=== PATIENT | female | born 1965 | race Caucasian/White ===

== ENCOUNTER 2016-05-18 15:11 | Emergency (ER) | payer BC, MEDICAID, OTHER ==
[~2016-05-18] VITALS: Ht 162.6 cm; Wt 101.0 kg
[~2016-05-18 15:11] MED LIST: IBUP200C11; NO OTHER MEDS; VIC
[2016-05-18 15:13] VITALS: Ht 162.6 cm; Wt 101.0 kg
[2016-05-18] MEDS ORDERED: morphine 4 MG/ML VIAL IV STA (15:50)
[2016-05-18] MEDS ORDERED: ONDANSETRON 4 MG INJ IV STA (15:50)
--- NOTE | 2016-05-18 16:23 | RADRPT ---
PROCEDURE: US Abdomen (right upper quadrant). CLINICAL INDICATION: Right upper quadrant pain TECHNIQUE: Multiple real-time longitudinal and transverse images of the right upper quadrant of th e abdomen were acquired utilizing a curved array transducer. Images were reviewed on a high-resoluti on PACS workstation. COMPARISON: None FINDINGS: The liver is borderline enlarged at 18.0 cm with a coarsened echotexture suggesting steatosis withou t focal mass or intrahepatic biliary dilatation. There is normal hepatopedal flow within the main p ortal vein. The gallbladder is gallbladder is well displayed. There are no filling defects and no wall thickening. The common bile duct measures 3.9 mm in maximal dimension. The visualized portion s of the pancreas are unremarkable with obscuration of the tail of the pancreas. No free fluid is i dentified. The right kidney measures 12.5 cm in length. There is normal echogenicity within the right kidney. There is no perinephric fluid collection. No hydronephrosis, mass, or calculus is seen. IMPRESSION: 1. Mild hepatomegaly with a coarsened echotexture suggesting diffuse steatosis. 2. The gallbladder, pancreas and biliary tree appear unremarkable. RPTAT: [facility] Physician Asaf Date Time Electronically viewed and signed by Physician Asaf on 05/18/2016 16:23 TERRI/
--- NOTE | 2016-05-18 16:40 | RADRPT ---
PROCEDURE: CT Abdomen and Pelvis without contrast. CLINICAL INDICATION: Right upper quadrant pain TECHNIQUE: CT scan of the abdomen and pelvis without contrast was performed on a multidetector hig h-resolution CT scanner. The patient was scanned without intravenous contrast. Coronal and sagittal reformatted images were obtained from the axial source images. Images were reviewed on a high-resol [employer] PACS workstation. The total exam CTDI equals 22.48 mGy and the total exam DLP equals 1317.73 m Gy-cm. One or more of the following dose reduction techniques were used: Automated exposure control. Adjustment of the mA and/or kV according to patient size. Use of iterative reconstruction technique. COMPARISON: None FINDINGS: CT abdomen: The lung bases are clear. The heart size is normal, without pericardial thickening or effusion. Th e liver is normal in size and density without focal mass or intrahepatic biliary dilatation. The sp raymond is normal in size and homogeneous in density. The stomach is partially collapsed, but is gross ly unremarkable. The pancreas as visualized is normal. The gallbladder and biliary tree are unrema rkable and there is no evidence for biliary dilatation. The adrenal glands are symmetric and normal . The kidneys are symmetrically unremarkable as well. No renal calculus or obstructive uropathy or mass lesion is seen. There is approximately 1.5 cm cortical cyst in the upper pole right kidney. The aorta is of normal caliber. There is no retroperitoneal lymphadenopathy. The ronny hepatis reg ion is clear. The bowel and mesentery, as visualized, are equally unremarkable. CT pelvis: The small bowel loops situated within the pelvis are unremarkable. There is a normal appendix. The p elvic organs are normal. The pelvic sidewalls and inguinal regions are clear. The sigmoid colon an d rectum are unremarkable. No mass, lymphadenopathy, or free fluid is seen. No acute inflammation is seen. No osteolytic or osteoblastic lesion is detected. IMPRESSION: 1. No mass, lymphadenopathy, or focal acute inflammatory process is identified. 2. Normal appendix. RPTAT: BB .Junaid Escobar MD, Date Time Electronically viewed and signed by .Junaid Escobar MD, on 05/18/2016 16:40 .O/
[2016-05-18 16:42] LABS: ADD UMIC YES; URINE BILIRUBIN (Dip) NEGATIVE (NEGATIVE); URINE BLOOD (Dip) TRACE (NEGATIVE); URINE COLOR LT. YELLOW (YELLOW); URINE GLUCOSE (Dip) NEGATIVE (NEGATIVE); URINE KETONES (Dip) NEGATIVE (NEGATIVE); URINE LEUKOCYTE ESTERASE (Dip) NEGATIVE (NEGATIVE); URINE NITRITE (Dip) NEGATIVE (NEGATIVE); URINE TOTAL PROTEIN (Dip) NEGATIVE (NEGATIVE); URINE UROBILINOGEN (Dip) 0.2 E.U./dL (0.1-1.0)
[2016-05-18 16:54] LABS: ADD SCAN DIFF NO
[2016-05-18 16:55] LABS: BASOPHILS % 0.2 % (0.0-2.0); EOSINOPHILS # 0.1 10^3/ul (0.0-0.5); EOSINOPHILS % 0.8 % (0.0-7.0); HEMATOCRIT 36.2 % (37.0-47.0); HEMOGLOBIN 11.7 g/dl (12.0-16.0); LYMPHOCYTES # 2.6 10^3/ul (0.8-2.9); MEAN CORPUSCULAR HEMOGLOBIN 28.2 pg (29.0-33.0); MEAN CORPUSCULAR HGB CONC 32.3 g/dl (32.0-37.0); MEAN CORPUSCULAR VOLUME 87.2 fl (82.0-101.0); MEAN PLATELET VOLUME 9.1 fl (7.4-10.4); MONOCYTE # 0.5 10^3/ul (0.3-0.9); NEUTROPHIL # 5.1 10^3/ul (1.6-7.5); NEUTROPHILS % 61.8 % (39.0-77.0); PLATELET COUNT 320 10^3/UL (140-415); RED BLOOD COUNT 4.15 10^6/ul (4.20-5.40); WHITE BLOOD COUNT 8.3 10^3/ul (4.8-10.8)
[2016-05-18 17:07] LABS: BACTERIA,URINE FEW; URINE RBCS 0-2 /HPF (0)
[2016-05-18 17:08] LABS: SQUAMOUS EPITHELIAL CELL,UR MODERATE
[2016-05-18 17:16] LABS: ALBUMIN/GLOBULIN RATIO 0.97
[2016-05-18 17:24] LABS: ALBUMIN 4.1 g/dl (3.3-4.9); BILIRUBIN,INDIRECT 0.4 mg/dl (0-1.1); BILIRUBIN,TOTAL 0.4 mg/dl (0.2-1.3); CREATININE 0.58 mg/dl (0.44-1.00); POTASSIUM 3.7 mmol/L (3.5-5.1); TOTAL PROTEIN 8.3 g/dl (6.1-8.1)
[2016-05-18] MEDS ORDERED: ONDA4TAB14 PO (18:11)
[2016-05-18] MEDS ORDERED: HYDR-902 PO (18:11)
--- NOTE | 2016-05-18 18:21 | ERD ---
ER Documentation Chief Complaint Date/Time DATE: 05/18/16 TIME: 18:19 Chief Complaint RT UPPER ABD PAIN X 6 MONTHS , WORSE SINCE YESYERDAY , DENIES N/V/D HPI Patient is a 50-year-old female with hypertension who presents with abdominal pain. The patient has right-sided flank pain and abdominal pain which started yesterday. The pain has been off and on for the past 6 months. The patient has had no treatment as of yet. She denies fevers. She feels constipated. Upon review of old medical records this is the patient's sixth visit to the ER since 2008. The patient does not currently have a primary doctor ROS All systems reviewed and are negative except as per history of present illness. Medications Home Meds Active Scripts Ondansetron (Ondansetron Odt) 4 Mg Tab.rapdis, 4 MG PO Q6H Y for NAUSEA AND/OR VOMITING, #30 TAB Prov:PERRI MURPHY MD 05/18/16 Hydrocodone/Acetaminophen ([place] 10-325 Tablet) 1 Each Tablet, 1 TAB PO Q6H Y for PAIN, #7 TAB Prov:PERRI MURPHY MD 05/18/16 Reported Medications [No Other Meds] No Conflict Check 05/18/10 Acetaminophen/Hydrocodone (Vicodin) 1 Tab Tab 03/05/10 Ibuprofen* (Advil*) 200 Mg Capsule 03/05/10 Allergies Allergies: Coded Allergies: No Known Drug Allergies (Verified Allergy, Mild, 10/09/13) PMhx/Soc History of Surgery: Yes ( x2, r. knee) Anesthesia Reaction: No Hx Neurological Disorder: No Hx Respiratory Disorders: No Hx Cardiac Disorders: Yes (htn) Hx Psychiatric Problems: No Hx Miscellaneous Medical Probl: No Hx Alcohol Use: No Hx Substance Use: No Hx Tobacco Use: No FmHx Family History: diabetes Physical Exam Vitals Vital Signs Date Time Temp Pulse Resp B/P Pulse Ox O2 Delivery O2 Flow Rate FiO2 05/18/16 15:13 99.6 81 81 163/90 97 Physical Exam Const: Mild distress secondary to pain Head: Atraumatic Eyes: Normal Conjunctiva ENT: Normal External Ears, Nose and Mouth. Neck: Full range of motion..~ No meningismus. Resp: Clear to auscultation bilaterally Cardio: Regular rate and rhythm, no murmurs Abd: Soft, diffuse tenderness to palpation without rebound or guarding Skin: No petechiae or rashes Back: No midline or flank tenderness Ext: No cyanosis, or edema Neur: Awake and alert Psych: Normal Mood and Affect Result Diagram: 05/18/16 1646 05/18/16 1646 Results 24 hrs Laboratory Tests Test 05/18/16 16:00 05/18/16 16:46 Urine Color LT. YELLOW Urine Clarity CLEAR Urine pH 5.5 Urine Specific [place] 1.025 Urine Ketones NEGATIVE Urine Nitrite NEGATIVE Urine Bilirubin NEGATIVE Urine Urobilinogen 0.2 E.U./dL Urine Leukocyte Esterase NEGATIVE Urine Microscopic RBC 0-2/HPF Urine Microscopic WBC 0-2/HPF Urine Squamous Epithelial Cells MODERATE Urine Bacteria FEW Urine Hemoglobin TRACE Urine Glucose NEGATIVE% Urine Total Protein NEGATIVE White Blood Count 8.310^3/ul Red Blood Count 4.1510^6/ul Hemoglobin 11.7g/dl Hematocrit 36.2% Mean Corpuscular Volume 87.2fl Mean Corpuscular Hemoglobin 28.2pg Mean Corpuscular Hemoglobin Concent 32.3g/dl Red Cell Distribution Width 15.0% Platelet Count 09847^3/UL Mean Platelet Volume 9.1fl Neutrophils % 61.8% Lymphocytes % 31.0% Monocytes % 6.0% Eosinophils % 0.8% Basophils % 0.2% Nucleated Red Blood Cells % 0.0/100WBC Neutrophils # 5.110^3/ul Lymphocytes # 2.610^3/ul Monocytes # 0.510^3/ul Eosinophils # 0.110^3/ul Basophils # 0.010^3/ul Nucleated Red Blood Cells # 0.010^3/ul Sodium Level 141mmol/L Potassium Level 3.7mmol/L Chloride Level 102mmol/L Carbon Dioxide Level 26mmol/L Anion Gap 17 Blood Urea Nitrogen 17mg/dl Creatinine 0.58mg/dl Glucose Level 104mg/dl Calcium Level 9.0mg/dl Total Bilirubin 0.4mg/dl Direct Bilirubin 0.00mg/dl Indirect Bilirubin 0.4mg/dl Aspartate Amino Transf (AST/SGOT) 29IU/L Alanine Aminotransferase (ALT/SGPT) 41IU/L Alkaline Phosphatase 128IU/L Total Protein 8.3g/dl Albumin 4.1g/dl Globulin 4.20g/dl Albumin/Globulin Ratio 0.97 Lipase 113U/L Current Medications Medications (Trade) Dose Ordered Sig/Malcolm Route PRN Reason Start Time Stop Time Status Last Admin Dose Admin Morphine Sulfate (morphine) 4 mg ONCE STAT IV 05/18/16 15:50 05/18/16 15:51 DC 05/18/16 16:50 Ondansetron HCl (Zofran Inj) 4 mg ONCE STAT IV 05/18/16 15:50 05/18/16 15:51 DC 05/18/16 16:50 Procedures/MDM CT scan negative for surgical process per radiology. Ultrasound negative for cholecystitis per radiology. Patient is a 50-year-old female presents with abdominal pain. She has had abdominal pain coming gone over the past [address] scan and ultrasound were basically normal. Laboratory studies are basically normal. At this point I doubt appendicitis, cholecystitis, pink otitis, or bowel obstruction. The patient has anemia but does not require a transfusion at this time. The patient will be discharged with prescription for [place] and Zofran. She should follow-up the local clinics within 24 hours for reevaluation. She can return sooner for any worsening symptoms. She was given copies of her laboratory studies and imaging test prior to discharge. Departure Diagnosis: Primary Impression: Abdominal pain Abdominal location: generalized Qualified Code: R10.84 - Generalized abdominal pain Condition: Fair Patient Instructions: Abdominal Pain Referrals[facility] Usted se mireles hecho un examen mdico de control que le indica que no est en becky condicin que requiera tratamiento urgente en el Departamento de Emergencia. Un estudio ms profundo y el tratamiento de harmon condicin pueden esperar sin ningn riesgo hasta que usted sea atendida/o en el consultorio de harmon mdico o becky cl mohinder. Es responsabilidad suya arreglar becky nickie para el seguimiento del liliana. MANEJO DE CONDICIONES NO URGENTES EN EL FUTURO 1) Si usted tiene un mdico de atencin primaria: Usted debera llamar a harmon mdico de atencin primaria antes de venir al departamento de emergencia. Despus de las horas de consultorio, harmon doctor o harmon asociado/a est disponible por telfono. El mdico o enfermero de emilia en el servicio telefnico puede asesorarle por mulugeta medio para atender el problema, o liliana contrario se puede programar becky nickie. 2) Si usted no tiene un mdico de atencin primaria: Llame al mdico o clnica de referencia que aparece abajo raymond las horas de consultorio para hacer becky nickie para que le vean. CLINICAS: [place] [phone] [facility] [phone] [facility]. [facility] [phone] [facility] [place] [phone] [facility] [place] [phone] [place] [phone] Additional Instructions: Visite a harmon mdico maana para un EXAMEN.Regrese a estas instalaciones si no se mejora judi esperbamos o judi le dijikens. PERRI MURPHY MD May 18, 2016 18:21
[2016-05-18 18:43] VITALS: BP 157/95; PULSE 80; RESP 20; TEMP 99.2
== END 2016-05-18 18:44 | disposition home or self-care (01) ==
LOC: FTE 15:11
DX: R10.84 Generalized abdominal pain (principal); I10 Essential (primary) hypertension
CPT/HCPCS: 36415; 74176; 76705; 80053; 81001; 81003; 83690; 85025; 96374; 96375; J2270; J2405; Z7502